=== PATIENT | male | born 1960 | race African-American/Black ===

== ENCOUNTER 2017-10-22 19:10 | Emergency (ER) | payer MEDICARE, OTHER ==
[~2017-10-22] VITALS: Ht 177.8 cm; Wt 102.1 kg
[~2017-10-22 19:10] MED LIST: ALIGN4 M1 PO; AMLODIPINE BESY10 MG PO; ASPIR-LOW81 MG PO; ASPIRIN81 MG ORAL; BENADRYL25 MG PO; BENADRYL50 MG ORAL; BENADRYL50 MG PO; CRESTOR10 M1 ORAL; DEXILANT60 MG ORAL; GAS-X80 MG PO; HYZAAR 100-251 EACH ORAL; HYZAAR 100-251 EACH PO; IBUPROFEN200 MG ORAL; KLOR-CON 1010 MEQ ORAL; MYLANTA30 M1 ORAL; NORVASC10 MG PO; PREVACID15 MG ORAL; PREVACID30 MG PO; SOMA350 MG PO; TOPROL XL50 MG PO; TUMS500 MG ORAL; ZOFRAN4 MG PO
[2017-10-22] MEDS ORDERED: NEXIUM40 MG ORAL (20:34)
[2017-10-22] MEDS ORDERED: METFORMIN HCL500 M1 ORAL (20:35)
[2017-10-22] MEDS ORDERED: TYLENOL EXTRA500 MG ORAL (21:34)
--- NOTE | 2017-10-22 21:34 | Emergency Room Report ---
History of Present Illness General Chief Complaint: Flu Like Symptoms Source: Patient Present Illness HPI 57 yo male patient presents to ER complaining of cough and fever "about a week". Patient reports hx of pneumonia that felt similar and is concerned he "has it again." Reports dry cough; denies blood. Reports subjective fever; no fever in ER acutely. Reports taking NSAIDS for relief of symptoms. Denies chest pain, SOB, abdominal pain, neck pain, leg swelling. Allergies: Coded Allergies: DOXYCYCLINE (Verified Allergy, Unknown, 05/05/10) GLUTEN (Verified Allergy, Unknown, 05/30/14) PT DEVELOPS DIARRHEA AND ABDOMINAL PAIN/CHEST PAIN IODINE (Verified Allergy, Unknown, 10/22/17) LACTOSE (Unverified Allergy, Unknown, 05/30/14) SHELLFISH (Verified Allergy, Unknown, 03/06/11) TETRACYCLINE (Verified Allergy, Unknown, 06/28/09) Patient History Past Medical History: see triage record Reviewed Nursing Documentation: PMH: Agreed, PSxH: Agreed Nursing Documentation-PMH Past Medical History: No History, Except For Hx Cardiac Problems: Yes - SVT Hx Hypertension: Yes Hx Pacemaker: No Hx Asthma: No Hx COPD: No Hx Diabetes: Yes Hx Cancer: No Hx Gastrointestinal Problems: Yes - DIVERTICULITIS Hx Dialysis: No Hx Neurological Problems: No Hx Cerebrovascular Accident: No Hx Seizures: No Review of Systems All Other Systems: negative except mentioned in HPI Physical Exam Vital Signs Date Time Temp Pulse Resp B/P (MAP) Pulse Ox O2 Delivery O2 Flow Rate FiO2 10/22/17 20:28 98.6 94 16 156/92 95 Room Air 98.6 Sp02 EP Interpretation: reviewed, normal General Appearance: well appearing, no apparent distress, alert, GCS 15, non- toxic Head: normocephalic, atraumatic Eyes: bilateral eye normal inspection, bilateral eye PERRL ENT: hearing grossly normal, normal pharynx, no angioedema, normal voice, uvula midline, moist mucus membranes Neck: full range of motion Respiratory: lungs clear, normal breath sounds, no rhonchi, no respiratory distress, no accessory muscle use, no wheezing, speaking full sentences Cardiovascular #1: regular rate, rhythm, no edema Cardiovascular #2: 2+ radial (R), 2+ radial (L) Gastrointestinal: non tender, soft, no mass, non-distended, no guarding, no rebound Genitourinary: no CVA tenderness Musculoskeletal: back normal, digits/nails normal, gait/station normal, normal range of motion, non-tender, no calf tenderness Neurologic: alert, oriented x3, responsive, motor strength/tone normal, sensory intact Psychiatric: mood/affect normal Skin: no rash Lymphatic: no adenopathy Medical Decision Making PA Attestation Dr. Bañuelos is my supervising Physician whom patient management has been discussed with. Diagnostic Impression: Primary Impression: Upper respiratory infection ER Course Pt presents to ED c/o cough and fever. DDX considered but are not limited to influenza, viral URI, pneumonia, strep throat, rhinitis, sinusitis, otitis media. VITAL SIGNS are WNL, patient is afebrile. BP elevated. Patient reports hx of HTN. Reports taking medications as instructed. Informed patient to followup with primary care provider and cardiology. Does not require workup at this time.. PE benign, lungs clear to auscultation, no wheezes, rhonci or rales. Did not hear patient cough during interview or exam. Ordered CXR. ER COURSE: CXR negative for acute disease. Informed patient pneumoniae unlikely at this time. Instructed to followup with PCP for further treatment. ER precautions given. Instructed to return to ER immediately for any new or worsening of symptoms. DISCHARGE: At this time pt is stable for d/c to home. Patient is resting comfortably, in no acute distress, nontoxic appearing, smiling and talking without difficulty.. -Rx given for Tylenol/Acetaminophen. Take for fever symptoms. Continue to take medications as prescribed by primary care provided. Patient to take medications as instructed Will provide with patient care instructions and any necessary prescriptions. Care plan and follow-up instructions provided. Patient instructed to follow-up with primary care provider in 3 - 5 days. Discuss further followup with cardiology or pulmonology as needed at that time. Patient questions asked and answered. Patient reports understanding and agreement to treatment plan. ER precautions given. Patient instructed to return to ER immediately for any new or worsening of symptoms including but not limited to chest pain, SOB, persistent fever. Chest X-Ray Diagnostic Results Chest X-Ray Diagnostic Results : Chest X-Ray Ordered: Yes # of Views/Limited/Complete: 1 View Indication: Chest Pain EP Interpretation: Yes HAILE Xray: Interpretation reviewed, by supervising MD, and agrees with findings. Interpretation: no consolidation, no effusion, no pneumothorax Impression: No acute disease PA Scribe Text Darryl Huerta PA-C Last Vital Signs Date Time Temp Pulse Resp B/P (MAP) Pulse Ox O2 Delivery O2 Flow Rate FiO2 10/22/17 20:28 98.6 94 16 156/92 95 Room Air 98.6 Disposition: HOME, SELF-CARE Condition: Stable Scripts Acetaminophen* (TYLENOL EXTRA STRENGTH*) 500 Mg Tablet 500 MG ORAL Q8H Y for Prn Headache/Temp > 101, #30 TAB 0 Refills Prov: Garcia Huerta 10/22/17 Referrals: Clifton Villa MD (PCP) Patient Instructions: Upper Respiratory Infection, Adult Additional Instructions: Followup with primary care provider in 3 -5 days. Take medications as directed. Patient questions asked and answered. ER precautions given, patient instructed to return to ER immediately for any new or worsening of symptoms. Garcia Huerta Oct 22, 2017 21:34
[2017-10-22 22:10] VITALS: BP 144/90
[2017-10-22 22:11] VITALS: BP 156/92
--- NOTE | 2017-10-23 10:33 | Diagnostic Imaging Report ---
Indication: Reason For Exam: PAIN Technique: One view of the chest Comparison: 05/30/2014 Findings: Lungs and pleural spaces are clear. Heart size is normal. Small band of atelectasis is seen in the right mid to lower lung. No significant interim change Impression: No acute process
== END 2017-10-22 22:12 | disposition home or self-care (01) ==
LOC: EMR 21:29
DX: J06.9 Acute upper respiratory infection, unspecified (principal); I10 Essential (primary) hypertension; E11.9 Type 2 diabetes mellitus without complications; K57.90 Diverticulosis of intestine, part unspecified, without perforation or abscess without bleeding; Z88.1 Allergy status to other antibiotic agents; Z91.041 Radiographic dye allergy status; Z91.013 Allergy to seafood; Z91.018 Allergy to other foods; R07.9 Chest pain, unspecified
CPT/HCPCS: 71045; 99283